=== PATIENT | female | born 1965 | race Caucasian/White ===

== ENCOUNTER → 2016-07-15 | Outpatient (CLI) | payer BC ==
[~2016-07-15] MED LIST: ACET-1311; ALBUAER2; ATOR10TA88 PO; CETI10TA84 PO; EYE; SNG10
--- NOTE | 2016-07-16 10:57 | MAMMOGRAPHY REPORT ---
BILATERAL DIGITAL SCREENING MAMMOGRAM TOMOSYNTHESIS WITH CAD: 07/15/2016 CLINICAL HISTORY: Patient has no complaints. TECHNIQUE: Breast tomosynthesis in addition to standard 2D mammography was performed. Current study was also evaluated with a Computer Aided Detection (CAD) system. COMPARISON: Comparison is made to exams dated: 07/12/2015 mammogram, 01/13/2012 mammogram, 01/15/2016 u ltrasound, 07/21/2015 mammogram, 07/14/2015 mammogram, and 05/17/2010 mammogram - [facility]. BREAST COMPOSITION: There are scattered areas of fibroglandular density in both breasts. The breas t parenchyma is increasingly fatty replaced compared to prior mammograms. FINDINGS: There is a stable metallic biopsy marker in the upper outer far posterior right breast. No new suspicious mass, architectural distortion or cluster of microcalcifications is seen. IMPRESSION: ACR BI-RADS CATEGORY 1: NEGATIVE There is no mammographic evidence of malignancy. A 1 year screening mammogram is recommended. The p atient will receive written notification of the results. Approximately 10% of breast cancers are not detected with mammography. A negative mammographic repor t should not delay biopsy if a clinically suggestive mass is present. Kaitlyn Pierre M.D. ay/:07/15/2016 16:42:58 Child Care Sitter: Carlos A WATTS(Lonnie)(M), [facility] letter sent: Normal 1/2 BI-RADS Code: ACR BI-RADS Category 1: Negative
== END | disposition home or self-care (01) ==
LOC: C.MAMM 09:03
PROVIDERS: ATTEND Internal Medicine
DX: Z12.31 Encounter for screening mammogram for malignant neoplasm of breast (principal)

== ENCOUNTER → 2016-07-23 | Outpatient (CLI) | payer BC ==
[2016-07-23 10:02] LABS: ALKALINE PHOSPHATASE 91 U/L (45-117); ALT/SGPT 18 U/L (12-78); AST/SGOT 13 U/L (15-37); CHOLESTEROL 298 mg/dl (0-200); CHOLESTEROL/HDL RATIO 7.5; HDL CHOLESTEROL 40 mg/dl; LDL CHOLESTEROL CALCULATED 192 mg/dl; TRIGLYCERIDES 331 mg/dl (0-150); VERY LOW DENSITY LIPOPROT CALC 66 mg/dl
== END | disposition home or self-care (01) ==
LOC: C.LAB1850 08:11
PROVIDERS: ATTEND Internal Medicine
DX: E78.00 Pure hypercholesterolemia, unspecified (principal)

== ENCOUNTER → 2017-02-14 | Outpatient (CLI) | payer BC | END | disposition home or self-care (01) | LOC: C.LAB1850 08:14 | PROVIDERS: ATTEND Internal Medicine | DX: Z11.59 Encounter for screening for other viral diseases (principal); E78.00 Pure hypercholesterolemia, unspecified ==

== ENCOUNTER → 2017-08-01 | Outpatient (CLI) | payer BC ==
[~2017-08-01] MED LIST changes: +ATOR10TA82 PO; -ATOR10TA88 PO
--- NOTE | 2017-08-01 15:05 | MAMMOGRAPHY REPORT ---
BILATERAL DIGITAL SCREENING MAMMOGRAM TOMOSYNTHESIS WITH CAD: 08/01/2017 CLINICAL HISTORY: Routine screening. Patient has no complaints. TECHNIQUE: Breast tomosynthesis in addition to standard 2D mammography was performed. Current study was also evaluated with a Computer Aided Detection (CAD) system. COMPARISON: Comparison is made to exams dated: 07/15/2016 mammogram, 01/15/2016 mammogram, 07/21/2015 m ammogram, 07/14/2015 mammogram, 07/12/2015 mammogram, and 01/13/2012 mammogram - [facility]ter. BREAST COMPOSITION: There are scattered areas of fibroglandular density in both breasts. FINDINGS: No suspicious masses, calcifications, or areas of architectural distortion are noted in ei ther breast. There has been no significant interval change compared to prior exams. A biopsy clip is again noted within the right superior breast. Small circumscribed benign-appearing mass in the left superior posterior breast is stable dating back to at least the 2016 exam. IMPRESSION: ACR BI-RADS CATEGORY 2: BENIGN There is no mammographic evidence of malignancy. A 1 year screening mammogram is recommended. The pa tient will receive written notification of the results. Approximately 10% of breast cancers are not detected with mammography. A negative mammographic report should not delay biopsy if a clinically suggestive mass is present. Nelly Ortiz M.D. /:08/01/2017 13:02:04 Mounter Clarinets: Crys MUNIZ)(Vera)(BD), [facility] letter sent: Normal 1/2 BI-RADS Code: ACR BI-RADS Category 2: Benign
== END | disposition home or self-care (01) ==
LOC: C.MAMM 12:03
PROVIDERS: ATTEND Internal Medicine
DX: Z12.31 Encounter for screening mammogram for malignant neoplasm of breast (principal)